=== PATIENT | female | born 1945 | race Caucasian/White ===

== ENCOUNTER 2018-10-18 19:36 | Emergency (ER) | payer MEDICARE ==
[~2018-10-18] VITALS: Ht 165.1 cm; Wt 87.5 kg
[2018-10-18 19:37] VITALS: BP 170/90
--- NOTE | 2018-10-18 19:42 | NUR ---
EDWIN GOTTLIEB AT BEDSIDE TO PINKY PT.
== END 2018-10-18 21:22 | disposition home or self-care (01) ==
LOC: ER 19:39
DX: M25.561 Pain in right knee (principal); Z90.710 Acquired absence of both cervix and uterus
CPT/HCPCS: 73564-TC